=== PATIENT | female | born 1985 ===

== ENCOUNTER 2021-07-20 13:56 | Emergency (ER) | payer OTHER ==
[2021-07-20] MEDS ORDERED: fentaNYL CITRATE 100 MCG/2 ML VL IV ONE (14:30)
[2021-07-20] MEDS ORDERED: ONDANSETRON HCL 4 MG/2 ML VIAL IV ONE ×2 (14:30→18:30)
[2021-07-20] MEDS ORDERED: fentaNYL CITRATE 250 MCG/5 ML VL IV ONE ×2 (14:45→16:15)
[2021-07-20] MEDS ORDERED: MORPHINE SULFATE 4 MG/ML SYR/VIAL IV ONE ×2 (14:45→18:30)
[2021-07-20 15:38] LABS: Basophils # (auto) 0 10 ^3/uL (0-0.2); Basophils % (auto) 0.5 % (0.0-2.0); Eosinophils # (auto) 0.2 10 ^3/uL (0-0.8); Eosinophils % (auto) 2.2 % (0.0-7.0); Hemoglobin 12.2 g/dL (12.2-16.2); Lymphocytes # (auto) 2.1 10 ^3/uL (0.4-5.4); Lymphocytes % (auto) 25.9 % (10.0-50.0); Mean Corpuscular Hemoglobin 31.6 pg (28.0-32.0); Mean Corpuscular Hgb Conc. 33.9 g/dL (32.0-36.0); Mean Corpuscular Volume 93.4 fL (80.0-100.0); Monocytes # (auto) 0.5 10 ^3/uL (0-1.3); Monocytes % (auto) 6.6 % (0.0-12.0); Neutrophils # (auto) 5.2 10 ^3/uL (1.6-8.6); Neutrophils % (auto) 64.8 % (37.0-80.0); Red Blood Cells 3.85 10^6/uL (4.0-5.20); Red Cell Distribution Width 13.3 % (11.8-14.3)
[2021-07-20 15:50] LABS: INR 0.96 (0.9-1.15); Partial Thromboplastin Time 24.9 sec (23.6-33.0)
[2021-07-20 16:00] LABS: Albumin 3.4 g/dL (3.4-5.0); BUN/Creatinine Ratio 21.2; Calcium 8.5 mg/dL (8.5-10.1); Potassium 3.5 mmol/L (3.5-5.1)
[2021-07-20 16:03] LABS: Bilirubin, Total 0.2 mg/dL (0.2-1.0); Total Protein 6.7 g/dL (6.4-8.2)
[2021-07-20 16:04] LABS: Urine Bacteria FEW /hpf (None Seen); Urine Blood Negative /uL (Negative); Urine Specific Gravity 1.005 (1.001-1.035); Urine WBC 3 /hpf (0 - 5)
[2021-07-20] MEDS ORDERED: TETANUS-DIPTH-ACEL PERTUSSIS 0.5ML SYR Tdap IM ONE (18:30)
[2021-07-20 19:03] VITALS: BP 138/100
== END 2021-07-20 18:53 | disposition left against medical advice (07) ==
LOC: ER 13:56 → EDBD 13:56 → ER 18:53
DX: S69.92XA Unspecified injury of left wrist, hand and finger(s), initial encounter (principal); Z53.29 Procedure and treatment not carried out because of patient's decision for other reasons; Z20.822 Contact with and (suspected) exposure to COVID-19; V29.40XA Motorcycle driver injured in collision with unspecified motor vehicles in traffic accident, initial encounter; Y93.89 Activity, other specified; Y92.89 Other specified places as the place of occurrence of the external cause; Y99.8 Other external cause status
CPT/HCPCS: 36415; 73090; 73130; 80053; 81001; 81025; 85025; 85610; 85730; 86850; 86900; 86901; 87426; 90471; 90715; 96374; 96375; 96376; 99285; J2270; J2405; J3010